=== PATIENT | male | born 1990 | race Caucasian/White ===

== ENCOUNTER → 2018-07-08 | Outpatient (CLI) | payer OTHER ==
[~2018-07-08] MED LIST: AMOXICILLIN500 MG PO; HYDROCODONE BIT1 T11 PO; KEFLEX500 MG PO; MOTRIN800 MG PO
== END | disposition home or self-care (01) ==
LOC: RAD 15:15
DX: R05 Cough (principal); R07.9 Chest pain, unspecified; Z87.891 Personal history of nicotine dependence